=== PATIENT | male | born 1980 | race Caucasian/White ===

== ENCOUNTER 2017-03-12 16:27 | Emergency (ER) | payer SELFPAY ==
[~2017-03-12 16:27] MED LIST: MEDR4PAK3 PO; ZITH250T PO
[2017-03-12 16:28] VITALS: BP 175/109; PULSE 108; RESP 20; TEMP 98.6; O2SAT 98
--- NOTE | 2017-03-12 17:14 | PD ---
Physical Exam Date Seen by Provider: March 12, 2017 Time Seen by Provider: 17:12 Narrative Pt presents with right lower back pain for the last few days. No dysuria or hematuria. VSS, awaiting bed placement. Data Data Last Documented VS Vital Signs Date Time Temp Pulse Resp B/P Pulse Ox O2 Delivery O2 Flow Rate FiO2 03/12/17 16:28 98.6 108 20 175/109 98 Room Air MDM Supervised Visit with FABIANO: Selene Howell March 12, 2017 17:14
--- NOTE | 2017-03-12 18:36 | PD ---
HPI Chief Complaint: Flank/Kidney Pain Time Seen by Provider: 18:36 Travel History International Travel<30 days: No Contact w/Intl Traveler<30days: No Traveled to known affect area: No History of Present Illness HPI 56-year-old male presents to the emergency department requesting initiation of medication for hepatitis C. Patient states that he was diagnosed with hepatitis C about 7 months ago and has not followed up with anybody. He would like to "get the process started." Denies any significant symptoms. No abdominal pain. No nausea or vomiting. No bowel or bladder changes. Patient does report right sided low back pain described as an ache, that has been there over the last few days since sleeping on a friend's couch. Denies any injury or trauma. Denies any focal deficit or weakness. Denies any saddle paresthesia , loss of bowel or bladder. Patient has no other symptoms to report. PFSH Past Medical History Anxiety: Yes Depression: Yes Cancer: No Diabetes: No Diminished Hearing: No GERD: Yes Hepatitis: No Hiatal Hernia: No Musculoskeletal: Yes (HX OF NECK PAIN) Neurologic: Yes (2 SLIPPED CERVIAL DISKS) Immunizations Current: No Thyroid Disease: No Past Surgical History Genitourinary Surgery: Yes (LITHOTRIPSY; UNKNOWN KIDNEY STONE SX) Pacemaker: No Other Surgery: Yes Social History Alcohol Use: No (OCC) Tobacco Use: Yes (1 PPD) Substance Use: No Allergies-Medications (Allergen,Severity, Reaction): Coded Allergies: No Known Allergies (Verified , 03/12/17) Reported Meds & Prescriptions Reported Meds & Active Scripts Active Robaxin (Methocarbamol) 500 Mg Tab 500 Mg PO QID PRN Ibuprofen 800 Mg Tab 800 Mg PO Q8H PRN Review of Systems Except as stated in HPI: all other systems reviewed are Neg Physical Exam Narrative GENERAL: Well-nourished male patient ambulatory with a nonantalgic gait no acute distress SKIN: Focused skin assessment warm/dry. HEAD: Atraumatic. Normocephalic. EYES: Pupils equal and round. No scleral icterus. No injection or drainage. ENT: No nasal bleeding or discharge. Mucous membranes pink and moist. NECK: Trachea midline. No JVD. CARDIOVASCULAR: Regular rate and rhythm. No murmur appreciated. RESPIRATORY: No accessory muscle use. Clear to auscultation. Breath sounds equal bilaterally. GASTROINTESTINAL: Abdomen soft, non-tender, nondistended. Hepatic and splenic margins not palpable. MUSCULOSKELETAL: No obvious deformities. No clubbing. No cyanosis. No edema. Tenderness elicited palpation of the right sacroiliac joint. NEUROLOGICAL: Awake and alert. No obvious cranial nerve deficits. Motor grossly within normal limits. Normal speech. Data Data Last Documented VS Vital Signs Date Time Temp Pulse Resp B/P Pulse Ox O2 Delivery O2 Flow Rate FiO2 03/12/17 19:20 97 18 136/89 98 03/12/17 18:49 Room Air 03/12/17 16:28 98.6 Orders Sodium Chlor 0.9% 1000 Ml Inj (Ns 1000 M (03/12/17 19:00) Ketorolac Inj (Toradol Inj) (03/12/17 19:00) Ketorolac Inj (Toradol Inj) (03/12/17 19:00) Orphenadrine Inj (Norflex Inj) (03/12/17 19:00) MDM Medical Decision Making Medical Screen Exam Complete: Yes Emergency Medical Condition: Yes Medical Record Reviewed: Yes Differential Diagnosis Muscle strain versus discogenic pain versus radiculopathy versus normal exam Narrative Course 6-year-old male presents to the emergency apartment initially requesting initiation of treatment for hepatitis C. I explained to the patient that we will not be initiating this year the [facility] department but advised that he follow -up outpatient for management of this. His abdominal exam is benign. His vital signs are stable. He does have a right lower at ache which he attributes to sleeping on a friend's couch. I offered him some pain control for this and with no focal deficits weakness, patient will be discharged home. Diagnosis Primary Impression: Low back pain Qualified Code: M54.5 - Right-sided low back pain without sciatica, unspecified chronicity Referrals: Primary Care Physician Patient Instructions: Acute Low Back Pain (ED), Back Exercises (ED), General Instructions Additional Instructions: Ice and/or warm ice may help alleviate symptoms Follow-up with primary provider Return immediately with any acute worsening symptoms Med/Other Pt SpecificInfo: Prescription(s) given Scripts Methocarbamol (Robaxin)500 Mg [id number] Mg PO QID PRN (MUSCLE SPASM) #20 TAB Ref 0 Prov:Fay Meredith 03/12/17 Ibuprofen 800 Mg [id number] Mg PO Q8H PRN (Pain/Inflammation) #30 TAB Ref 0 Prov:Fay Meredith 03/12/17 Disposition: 01 DISCHARGE HOME Condition: Stable Fay Meredith March 12, 2017 18:36
[2017-03-12 18:49] VITALS: BP 146/93; PULSE 92; RESP 17; O2SAT 98
[2017-03-12] MEDS ORDERED: KETOROLAC TROMETHAMINE 60 MG/2 ML (IM) VIAL IM ONE (19:00)
[2017-03-12] MEDS ORDERED: KETOROLAC TROMETHAMINE 30 MG/ML (IVP) VIAL IV PUSH ONE (19:00)
[2017-03-12] MEDS ORDERED: ORPHENADRINE INJ 60 MG/2 ML AMP IM ONE (19:00)
[2017-03-12] MEDS ORDERED: SODIUM CHLOR 0.9% 1000 ML INJ 1,000 ML IV ONE (19:00)
[2017-03-12 19:20] VITALS: BP 136/89; PULSE 97; RESP 18; O2SAT 98
[2017-03-12] MEDS ORDERED: IBUP800T23 PO (19:54)
[2017-03-12] MEDS ORDERED: ROBA500T PO (19:54)
[2017-03-12 20:50] VITALS: BP 132/88
== END 2017-03-12 20:52 | disposition home or self-care (01) ==
LOC: NEPD 16:27
DX: M54.5 Low back pain (principal); F17.210 Nicotine dependence, cigarettes, uncomplicated
CPT/HCPCS: 96372; 96374; 99283; J1885; J2360